=== PATIENT | male | born 1945 | race Caucasian/White ===

== ENCOUNTER → 2017-12-31 | Outpatient (CLI) | payer MEDICARE | END | disposition home or self-care (01) | LOC: ECHO 08:19 | DX: I36.1 Nonrheumatic tricuspid (valve) insufficiency (principal); I27.20 Pulmonary hypertension, unspecified | CPT/HCPCS: 93306 ==

== ENCOUNTER 2018-03-03 08:53 | Outpatient (CLI) | payer MEDICARE ==
[~2018-03-03] VITALS: Ht 177.8 cm; Wt 81.6 kg
[2018-03-03] VITALS (7 sets, daily range): BP systolic 102–117; BP diastolic 58–72
[~2018-03-03 08:53] MED LIST: IODIXANOL 320 MG/ML 100 ML VIAL. ONE; LIDOCAINE 1% PF 30 ML VIAL. ONE
[2018-03-03] MEDS ORDERED: DIGO125T PO (09:11)
[2018-03-03] MEDS ORDERED: SPIR25TA5 PO (09:11)
[2018-03-03] MEDS ORDERED: METO50TA6 PO (09:11)
[2018-03-03] MEDS ORDERED: ASPI81TA50 PO (09:11)
[2018-03-03] MEDS ORDERED: WARF-31 PO (09:11)
[2018-03-03 09:25] LABS: HEMATOCRIT 46.7 % (39.0-53.0); HEMOGLOBIN 15.9 g/dL (13.0-17.5); RED BLOOD COUNT 4.9 x10^6/uL (4.30-5.70); RED CELL DISTRIBUTION WIDTH 13.1 % (11.5-14.5); WHITE BLOOD COUNT 6.1 x10^3/uL (4.0-11.0)
[2018-03-03 09:39] LABS: CALCIUM 8.5 mg/dL (8.5-10.1); CREATININE 0.9 mg/dL (0.7-1.3); GFR 83.2
[2018-03-03 09:40] LABS: PROTHROMBIN TIME PATIENT 14.3 SEC (11.7-14.0)
[2018-03-03] MEDS ORDERED: fentaNYL PF VIAL 100 MCG/2 ML VIAL ONE (10:19)
[2018-03-03] MEDS ORDERED: MIDAZOLAM HCL/PF 2 MG/2 ML VIAL. ONE (10:20)
[2018-03-03] MEDS ORDERED: IODIXANOL 320 MG/ML 100 ML VIAL. IART ONE (10:30)
[2018-03-03] MEDS ORDERED: LIDOCAINE 1% PF 30 ML VIAL. INJ ONE (10:30)
[2018-03-03] MEDS ORDERED: fentaNYL PF VIAL 100 MCG/2 ML VIAL IV ONE (10:30)
[2018-03-03] MEDS ORDERED: MIDAZOLAM HCL/PF 2 MG/2 ML VIAL. IV ONE (10:30)
[2018-03-03] MEDS ORDERED: CONTRAST GIVEN. MC PRN (10:45)
[2018-03-03] MEDS ORDERED: IV 1/2 NORMAL SALINE 1,000 ML IV SCH (11:20)
--- NOTE | 2018-03-03 11:29 | PDOC ---
MODERATE SEDATION ASSESSMENT RISKS/ALTERNATIVES Risks/Alternatives Risks and alternatives of this type of sedation and procedure discussed with: RISK/ALTERNATIVES: Patient H & P ON CHART H & P H & P on chart and reviewed for co-morbid conditions and appropriate labs. H&P ON CHART: Yes STATUS PREG STATUS ASSESSED: N/A MEDS/ALLERGIES REVIEWED Meds/Allergies Reviewed Medications and Allergies including time and route of recently administered narcotics and sedatives. MEDS/ALLERGIES REVIEWED: Yes ASA RATING ASA RATING: II AIRWAY ASSESSMENT Airway Assessment Airway patency, oral function limitations, presence of caps, crowns, dentures, partials, and ability to extend neck assessed. AIRWAY ASSESSMENT: Yes MALLAMPATI SCORE MALLAMPATI SCORE: II PRE-SEDATION ASSESSMENT PRE-SEDATION ASSESSMENT: Yes TERRA CAMARENA MD Mar 03, 2018 11:29
--- NOTE | 2018-03-03 14:42 | CARD ---
MR#: [id number] Date of Study: 03/03/2018 Ordering Physician: TERRA CAMARENA Referring Physician: TERRA CAMARENA Tech: RT Rah (R) APPROVED REPORT Technologist: Susan Vigil RT (R) Nurse: Macrina Dexter R.N. Procedure(s) performed: Aortogram with bilateral lower extremity runoff Moderate sedation: 46 mins INDICATION The indication(s) include : Peripheral artery disease with claudication and abnormal [employer]. PROCEDURE NARRATIVE After explaining the risks, benefits and alternative options, informed consent was obtained from kandy ent. Patient brought to the cardiac Embedded Nurse and his right groin was prepped and draped in the usual fashion. 20 mL of 2% lidocaine was infiltrated into the skin and subcutaneous tissues for local anest hesia. Arterial access was obtained the right common femoral artery and a 5 Montenegrin sheath was inserte d. 5 Montenegrin pigtail catheter was used to perform aortogram with bilateral lower extremity runoff. Sub sequently, a 4 Montenegrin angled glide catheter was used to obtain gradient across the borderline stenosi s involving the right common iliac artery. Patient tolerated the procedure well. Hemostasis was achie ni using mynx closure device. There were no immediate complications. FINDINGS 1. No significant stenosis involving the distal descending aorta 2. 50% stenosis with ulcerated plaque noted in the right common iliac artery without any significant gradient across the stenosis. No significant stenosis involving the left common iliac artery and bi lateral external iliac arteries. 3. No significant stenosis involving bilateral common and superficial femoral arteries. 4. No significant stenosis involving bilateral popliteal arteries. There is good three vessel runoff below the knee bilaterally. Recommendations Vascular risk factor modification and regular exercise regimen Signed by : Terra Camarena, Electronically Approved : 03/03/2018 14:41:17
== END 2018-03-03 13:28 | disposition home or self-care (01) ==
LOC: CCL 08:53
PROVIDERS: ATTEND Internal Medicine Cardiovascular Disease
DX: I70.201 Unspecified atherosclerosis of native arteries of extremities, right leg (principal); I10 Essential (primary) hypertension; I36.1 Nonrheumatic tricuspid (valve) insufficiency; I42.9 Cardiomyopathy, unspecified; Z79.899 Other long term (current) drug therapy; Z79.82 Long term (current) use of aspirin; Z90.49 Acquired absence of other specified parts of digestive tract; Z98.890 Other specified postprocedural states; Z72.0 Tobacco use
CPT/HCPCS: 36415; 75630; 80048; 85027; 85610; 85730; C1713; C1769; G0269; J1644; J2250; J3010; 99152; 99153

== ENCOUNTER → 2018-07-10 | Outpatient (CLI) | payer MEDICARE ==
[2018-03-03 12:31] VITALS: BP 106/64
[~2018-07-10] MED LIST changes: +ASPI81TA50 PO; +DIGO125T PO; -IODIXANOL 320 MG/ML 100 ML VIAL. ONE; -LIDOCAINE 1% PF 30 ML VIAL. ONE; +METO50TA6 PO; +SPIR25TA5 PO; +WARF-31 PO
== END | disposition home or self-care (01) ==
LOC: LAB 08:53
PROVIDERS: ATTEND Family Medicine
DX: I48.91 Unspecified atrial fibrillation (principal)
CPT/HCPCS: 36415; 85610

== ENCOUNTER → 2019-04-01 | Outpatient (CLI) | payer MEDICARE ==
[2018-03-03 12:31] VITALS: BP 106/64
[2019-04-01 15:49] LABS: PROTHROMBIN TIME PATIENT 27.8 SEC (11.7-14.0)
== END | disposition home or self-care (01) ==
LOC: SPEC 15:33
PROVIDERS: ATTEND Internal Medicine Cardiovascular Disease
DX: I48.91 Unspecified atrial fibrillation (principal)
CPT/HCPCS: 36415; 85610

== ENCOUNTER → 2019-07-08 | Outpatient (CLI) | payer MEDICARE ==
[2018-03-03 12:31] VITALS: BP 106/64
[~2019-07-08] MED LIST changes: -DIGO125T PO; +DIGO125T3 PO
--- NOTE | 2019-07-08 14:37 | RAD ---
Portable chest x-ray without comparison for congestive heart failure. FINDINGS: Lungs are clear. Heart size within normal limits. There has been a prior median sternotomy. 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 Aortic calcifications are noted. Degenerative changes of the spine are evident and there has been a prior cholecystectomy. IMPRESSION: 1. No acute cardiopulmonary abnormality. Electronically signed by: Andriy Cornell MD (07/08/2019 2:35 PM) [id number]
== END | disposition home or self-care (01) ==
LOC: RAD 14:04
PROVIDERS: ATTEND Internal Medicine Cardiovascular Disease
DX: I70.0 Atherosclerosis of aorta (principal); I50.9 Heart failure, unspecified; M47.814 Spondylosis without myelopathy or radiculopathy, thoracic region; Z90.49 Acquired absence of other specified parts of digestive tract; Z95.2 Presence of prosthetic heart valve
CPT/HCPCS: 71046